=== PATIENT | male | born 1970 | race Caucasian/White ===

== ENCOUNTER → 2017-03-31 | Outpatient (CLI) | payer OTHER ==
[~2017-03-31] MED LIST: ETAN50IN3 SC; FLNIN NAE; FLV1 PO; KLN1X PO; MTH25 PO; NAPR500T3 PO; SRQ25 PO; TRAZ-120 PO; ZLF/100 PO
[2017-03-31 09:39] LABS: BASO % 0.3 %; BASO ABS # 0.02 K/uL (0-0.2); COMPLETE YES; EOS % 3.2 %; HEMATOCRIT 44.3 % (42-52); IG% 0.3 %; LYMPH % 27.8 %; LYMPH ABS # 2.06 K/uL (1.2-3.4); MEAN CELL VOLUME 84.9 fL (80-100); MEAN CORPUSCULAR HEMOGLOBIN 29.7 pg (25-34); MEAN PLATELET VOLUME 9.1 fL (7.4-10.4); MONO % 8.2 %; NEUT % 60.2 %; PLATELET COUNT 161 K/uL (130-400); RED BLOOD COUNT 5.22 M/uL (4.7-6.1); WHITE BLOOD COUNT 7.42 K/uL (4.8-10.8)
[2017-03-31 10:10] LABS: BLOOD UREA NITROGEN 25 mg/dl (7-18); BUN/CREATININE RATIO 24.6 (10-20); CALCIUM 8.3 mg/dl (8.5-10.1); CARBON DIOXIDE 26 mmol/L (21-32); CHLORIDE 104 mmol/L (98-107); GLUCOSE 93 mg/dl (70-99); POTASSIUM 4.1 mmol/L (3.5-5.1); SODIUM 136 mmol/L (136-145)
[2017-03-31 10:13] LABS: CHOLESTEROL 168 mg/dl (0-200); CHOLESTEROL/HDL RATIO 4.7; HDL CHOLESTEROL 36 mg/dl; LDL CHOLESTEROL CALCULATED 108 mg/dl; TRIGLYCERIDES 121 mg/dl (0-150); VERY LOW DENSITY LIPOPROT CALC 24 mg/dl
== END | disposition home or self-care (01) ==
LOC: C.LAB1850 08:10
PROVIDERS: ATTEND Family Medicine
DX: Z87.898 Personal history of other specified conditions (principal)

== ENCOUNTER → 2017-05-22 | Outpatient (CLI) | payer OTHER ==
--- NOTE | 2017-05-22 14:23 | DIAGNOSTIC IMAGING REPORT ---
R KNEE 4 OR MORE CLINICAL HISTORY: RIGHT KNEE PAIN pain COMPARISON: None. DISCUSSION: Moderate degenerative narrowing of all major joint compartments. Very small joint effusion. Small osteophytes from the superior and inferior aspects of the patella. No significant fat fluid level. There is no evidence for soft tissue swelling. IMPRESSION: Moderate degenerative change all major joint compartments. Small joint effusion. The above report was generated using voice recognition software. It may contain grammatical, syntax or spelling errors. Electronically signed by: Ruben Montgomery M.D. 05/22/2017 2:22 PM Dictated Date/Time: 05/22/2017 2:21 PM
== END | disposition home or self-care (01) ==
LOC: C.RDSM 08:00
PROVIDERS: ATTEND Family Medicine
DX: M25.561 Pain in right knee (principal)

== ENCOUNTER → 2017-05-29 | Outpatient (CLI) | payer OTHER ==
--- NOTE | 2017-05-29 08:52 | DIAGNOSTIC IMAGING REPORT ---
MRI OF THE RIGHT KNEE CLINICAL HISTORY: Right knee injury. COMPARISON STUDY: Radiograph of the right knee dated 05/22/2017. TECHNIQUE: MRI of the right knee was performed utilizing proton density, T1, and T2-weighted sequences in the axial, sagittal, coronal planes. IV contrast was not administered for this examination. FINDINGS: Menisci: There is extensive tearing/maceration involving the medial meniscus which is extruded. There is a free edge tear involving the lateral meniscus. Ligaments: The anterior and posterior cruciate ligaments are intact. The medial collateral ligament is intact. There is significant thickening and irregularity of the fibular collateral ligament which is at least partially torn near the femoral insertion. There is subchondral cystic change and marrow edema in the underlying femoral condyle and this is likely chronic. There is also tendinopathy with partial thickness tearing of the popliteus tendon in this region. The iliotibial band is preserved. Extensor mechanism: The extensor mechanism is intact. Hoffa's fat pad is normal in appearance. Articular cartilage and bone: As noted above, there is significant marrow edema and subchondral cyst formation identified within the peripheral aspect of the lateral femoral condyle. This is likely related to chronic injury/degenerative change. There is significant marrow edema also seen within the medial femoral condyle, greatest along the weightbearing surface. Marginal osteophytes are noted and there are small patellar enthesophytes. There is mild thinning of the articular cartilage and patellofemoral compartment. A small focus of full-thickness cartilage loss is seen along the inferior aspect of the medial patellar facet on axial image #17. There is also full-thickness cartilage loss seen in the underlying medial femoral trochlea on axial image #16. There is greater than 50% thinning of the articular cartilage along the weightbearing surface in the medial and lateral compartments. There is nearly full-thickness loss on the weightbearing surface in the medial compartment. Joint effusion: A moderate joint effusion is identified. Soft tissues: The musculature surrounding the knee joint is normal in bulk and signal intensity. A tiny popliteal cyst is noted. IMPRESSION: 1. There is maceration with extensive degenerative tearing and extrusion of the medial meniscus. 2. A free edge tear is seen involving the lateral meniscus. 3. The cruciate ligaments and the medial collateral ligament are intact. 4. There is chronic appearing tearing of the fibular collateral ligament, greatest at the femoral insertion. There is also tearing of the popliteus tendon at this site. Marrow edema and subchondral cystic change is present within the peripheral aspect of the underlying lateral femoral condyle and these findings are likely chronic. 5. Additional foci of arthritic change as above with significant marrow edema within the medial femoral condyle. 6. Joint effusion and tiny popliteal cyst. Electronically signed by: Frankie Son M.D. 05/29/2017 8:51 AM Dictated Date/Time: 05/29/2017 8:41 AM
== END | disposition home or self-care (01) ==
LOC: C.MRI 07:40
PROVIDERS: ATTEND Family Medicine
DX: S83.241A Other tear of medial meniscus, current injury, right knee, initial encounter (principal); S83.281A Other tear of lateral meniscus, current injury, right knee, initial encounter; M23.8X1 Other internal derangements of right knee; M25.461 Effusion, right knee; M71.21 Synovial cyst of popliteal space [Baker], right knee; X50.1XXA Overexertion from prolonged static or awkward postures, initial encounter; Z88.1 Allergy status to other antibiotic agents; Z91.048 Other nonmedicinal substance allergy status

== ENCOUNTER → 2017-06-05 | Outpatient (CLI) | payer OTHER | END | disposition home or self-care (01) | LOC: C.RDSM 19:23 | PROVIDERS: ATTEND Physical Medicine & Rehabilitation Sports Medicine | DX: M25.561 Pain in right knee (principal) ==

== ENCOUNTER → 2017-07-30 | Day surgery (SDC) | payer OTHER ==
[2017-07-21 09:59] VITALS: Ht 167.6 cm; Wt 113.6 kg
[~2017-07-30] VITALS: Ht 167.6 cm; Wt 113.6 kg
[~2017-07-30] MED LIST changes: +ASPI325T45 PO; +ATROPINE SULFATE 0.1 MG/ML 5ML SYR IV PRN; +BUPR-79 PO; +CEFAZOLIN 3000MG IV PUSH 22.5 ML IV SCH; +CLOM25CA3 PO; +CLOM75CA3 PO; +DEXAMETHASONE SOD INJ 4 MG/ML VIAL ONE; -ETAN50IN3 SC; +EpHEDrine SULFATE INJ 50 MG/ML AMP IV PRN; +FENTANYL CITRATE INJ 50 MCG/1 ML 2 ML VIAL ONE; -FLNIN NAE; +FLUT50SP45; +HYDR-5688 PO; +LACTATED RINGER'S 1000ML 1,000 ML IV SCH; +LIDOCAINE HCL 2% 2 ML VIAL (20MG/ML) ONE; +LIDOCAINE/EPINEPHRINE 1% 20 ML VIAL ONE; +MIDAZOLAM HCL 1 MG/ML 2ML VIAL ONE; +MoRPHine SULFATE 2 MG/ML CARP IV PRN; +MoRPHine SULFATE 4 MG/ML 1 ML CARP\\VIAL IV PRN; +NAPR-1231 PO; -NAPR500T3 PO; +ONDANSETRON INJ 2 MG/ML 2 ML VIAL IV PRN; +ONDANSETRON INJ 2 MG/ML 2 ML VIAL ONE; +OXYCODONE/ACETAMINOPHEN 5-325 TAB PO PRN; +PROPOFOL IV EMULSION 10 MG/ML 20 ML VIAL IV ONE; +QUET1TAB34 PO; +RMCI INJ; +SODIUM CHLORIDE 0.9% 1000ML 1,000 ML IV SCH; -SRQ25 PO; -TRAZ-120 PO; -ZLF/100 PO
--- NOTE | 2017-07-30 09:04 | History & Physical Bridge Note ---
H&P Re-Evaluation Bridge Note: I have examined the patient, reviewed the History & Physical and in the interval since the performance of the History & Physical I have noted the following changes of clinical significance: No changes noted
--- NOTE | 2017-07-30 11:17 | [facility] Post Operative Brief Note ---
Immediate Operative Summary Operative Date Jul 30, 2017. 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
--- NOTE | 2017-07-30 11:32 | Discharge Instructions-SurgCtr ---
Discharge Instructions Date of Service Jul 30, 2017. Visit Reason for Visit: Right Knee Chondrosis With Medial Lateral Meniscus Discharge Discharge Diagnosis / Problem: Right knee chondrosis, synovitis, medial and lateral meniscal tears Discharge Goals Goal(s): Decrease discomfort, Improve function, Increase independence Medications Stopped Medications Name(s): stopped blood thinners Restart Stopped Medication(s): Please resume her methotrexate and Remicade as indicated by her carbon cutter. Hold for at least 2 weeks after surgery. May resume as of August 14, 2017. Activity Recommendations Activity Limitations: per Instructions/Follow-up section Weightbearing Status: Right weightbearing (as tolerated) Anesthesia . Post Anesthesia Instructions: If you have had General Anesthesia or IV Sedation: * Do not drive today. * Resume driving when surgeon permits. * Do not make important decisions or sign legal documents today. * Call surgeon for: 1. Temperature elevations greater than 101 degrees F. 2. Uncontrollable pain. 3. Excessive bleeding. 4. Persistent nausea and vomiting. 5. Medication intolerance (nausea, vomiting or rash). * For nausea and vomiting use only clear liquids such as: tea, soda, bouillon until nausea subsides, then gradually increase diet as tolerated. * If you have any concerns or questions, call your surgeon's office. If physician is unavailable and it is an emergency, call 911 or go to the nearest emergency room. . Instructions / Follow-Up Instructions / Follow-Up The following are instructions to follow after your Arthroscopic Knee Surgery. ACTIVITY RECOMMENDATIONS: * Minimize activity until your first visit after surgery. * No excessive walking, jogging, sports or laboring. * Return to activity is individualized. Most patients are able to return to every day activities within one month. * Return to sports or intensive labor usually occurs at 2-3 months. * Driving is not permitted until at least your first postoperative visit at a minimum. Please ask your doctor when it is safe to resume driving. If you have an automatic vehicle and your left leg has been operated on, then you may begin driving as soon as you are comfortable and can drive safely. SCHOOL/WORK RECOMMENDATIONS: * You may return to sedentary work or school when you are feeling more comfortable. This is usually 3-7 days after surgery. * Expect increased discomfort with increased activity. Continue to elevate and ice the leg as much as possible. MEDICATIONS: * You will have a prescription for pain medication and an anti-inflammatory medication after surgery. * Use the pain medication for severe pain and the anti-inflammatory for less severe pain. Once the pain medication has run out, try to use the anti-inflammatory medication. If this is not effective, contact the office for assistance. * The pain medication may cause nausea, constipation and drowsiness. You should see how they affect you before driving or similar activity. * The anti-inflammatory medication may cause stomach upset and bleeding. If this occurs let your doctor know immediately . * Take a stool softener like Colace or a laxative like Senokot to prevent constipation. DIET: * Resume previous diet. SPECIAL CARE: ICE: You have the option of an ice cooler, gel packs or ice bags. * If you have an ice cooler, refer to the instructions for that device. The ice cooler may be used continuously. * If you do not have an ice cooler, you will need to use ice bags or gel packs. Do not apply ice directly to the skin. Use a thin dressing or stephanie shirt between the skin and ice bag. Apply ice for 20-30 minutes and repeat every 2-4 hours. This is especially important for the first 7-10 days after surgery. Once the pain improves, use ice as needed. ELEVATION: * Keep your leg elevated at or above the level of your heart as much as possible. * Expect some increased discomfort and swelling if you are standing for any length of time. * When lying down, avoid placing anything under your knee. Rather, prop your leg up by placing several pillows under your heel or calf. DRESSING: * Your dressing will be changed at your first therapy appointment approximately 4-5 days after surgery. Band-aids, tape strips or gauze may be applied. You may then change your dressing daily. * Reapply dressing followed by the Avila wrap or Tubi-stone driller helper stockinet and EBIce cooling pad (if chosen). * Always wash your hands prior to touching the incision area. * Once the stitches are removed, you may leave the wound open to air or cover with an Avila wrap or Tubi-stone driller helper stockinet. * If you have been given a white elastic stocking (JEROME hose), wear as much as possible for the first 1-3 weeks depending on swelling. * Expect some bloody drainage for the first few days after surgery. * Leave the tape strips, if present, in place for 5-7 days. * Band-aids and gauze may be changed daily. CRUTCHES: * You will need to use crutches after surgery. * You may gradually progress to full weight bearing as tolerated and wean off the crutches unless otherwise advised. * Your therapist can provide assistance weaning off crutches. * Patients who have a microfracture done may need to be toe-touch weight- bearing for 4-6 weeks. BATHING: * You may shower or sponge-bathe immediately after surgery. * The dressing will need to be covered with a plastic bag or plastic wrap until the dressing is changed on the fourth or fifth day after surgery. * Once the dressing has been changed on the fourth or fifth day after surgery, you may shower and get the incision wet. * Wash with regular soap and water. * Do not bathe (submerge the incision), soak, swim or use a hot tub until the incision is completely healed over with normal skin and the doctor has given the OK to proceed. * There is no need to apply any ointments, powders or salves to your incision. * Do not apply alcohol or hydrogen peroxide directly to the incision. * Diluted peroxide (50:50 mixture with sterile saline) may be used to clean dried blood from around the incision area. BRACE: * Bracing is generally not needed after routine Arthroscopic Knee surgery. THERAPY: * You will begin therapy four or five days after surgery. * Organized therapy with the therapist is important for the first 4-6 weeks after surgery. During that time you will attend therapy 1-3 times per week. * You will also need to do daily exercises for range of motion and strength as instructed. PROBLEMS/QUESTIONS: * If you have any problems such as severe pain, numbness, tingling or high fevers or if you have any questions, please contact the office at [phone]. * It is not uncommon to have some numbness and tingling after the surgery especially if you have had a nerve block done. This should gradually improve over the first 1- 2 days. If this persists longer or worsens please contact the office. FOLLOW UP VISIT: * If not already scheduled, please call the office at to schedule a follow-up appointment for 10 days, 6 weeks and 3 months after surgery. *You have a follow-up appointment with Dr. Ceron on August 10, 2017 at 11:45 AM. *You have a physical therapy appointment on August 03, 2017 at 2:00 PM. Diet Recommendations Home Diet: no limitations, resume previous diet Procedures Procedures Performed: Right Knee Arthroscopy, Chondroplasty, Partial Lateral and Medial Meniscectomy and Synovectomy Pending Studies Studies pending at discharge: no Medical Emergencies . Who to Call and When: Medical Emergencies: If at any time you feel your situation is an emergency, please call 911 immediately. . Non-Emergent Contact Non-Emergency issues call your: Surgeon Call Non-Emergent contact if: temperature is above 100.5, your pain is not controlled, wound has increased drainage, wound has increased redness, wound has increased pain, you have any medication questions . . "Provider Documentation" section prepared by Lynda Lomeli. . [place] Drug Monitoring Program Search Results: patient reviewed within database, no issues identified
--- NOTE | 2017-07-30 11:35 | [facility] Operative Report ---
Operative Report Operative Date Jul 30, 2017. 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 He is progressively worsened over the last few months. X-rays were taken and was found to have some mild degenerative changes of his right knee. MRI was taken and found to have a medial lateral meniscal tear. He is failed conservative treatment. Due to the failure of conservative treatment, surgical intervention was discussed. He wished to proceed with surgery. Risks and complications of surgery were explained to the patient and informed consent was obtained. Description of Procedure Patient was taken to the operating room and placed under general anesthesia. He was given 2 g of IV Ancef for surgical prophylaxis. Timeout was performed. He was prepped and draped in routine sterile fashion. I was present during the entire case, please see Dr. Ceron's operative report for further detail. Patient was awakened and transferred to the recovery room in stable condition. I attest to the content of the Intraoperative Record and any orders documented therein. Any exceptions are noted below.
--- NOTE | 2017-07-30 11:41 | [facility] Operative Report ---
Operative Report Operative Date Jul 30, 2017. Pre-Operative Diagnosis Right knee chondrosis with medial and lateral meniscal tears Post-Operative Diagnosis Same as pre-op Procedure(s) Performed Right Knee Arthroscopy, Chondroplasty, Partial Lateral and Medial Meniscectomy and Synovectomy Surgeon Surgical Services Director Surgeon(s) Zeinab MARTINEZ Estimated Blood Loss 20ML Findings Grade 2 and possibly grade 3 chondrosis trochlea 22 cm. Normal appearance of the patella. Diffuse synovitis. Fraying and tearing of the inner rim of the lateral meniscus. Grade 3 chondrosis of the lateral femoral condyle weightbearing area 1.51 cm. Complex irreparable medial meniscus tear with grade 1 chondrosis of the tibial plateau and diffuse grade 2-3 chondrosis of the medial femoral condyle. Specimens None Anesthesia Laryngeal mask Complication(s) None Disposition Recovery Room / PACU Indications Patient's a 46-year-old male. He is status post a work-related injury to his right knee. He has chondrosis of the knee and injury to the medial meniscus. He also has rheumatoid arthritis. His medications have been held in coordination with his greaser and oiler preoperatively and will will be begun 2 weeks postoperatively. Description of Procedure Informed consent was obtained. The patient was identified as Cristiano Jin. The operative site was identified as the right knee which I marked with my initials. A preop dose of IV antibiotics was given. The patient was positioned supine on the operating room table. A preoperative surgical timeout was performed. The examination under anesthesia showed range of motion 0 to about 110 with intact cruciate and collateral ligaments with no significant effusion or bogginess.. A lateral post was used for stressing the knee. No tourniquet was applied. DVT prophylaxis intraoperatively with foot pumps. A laryngeal mask anesthetic was administered. Prior to start of the operation 1% lidocaine with epinephrine was injected into the knee joint, fat pad and portal sites. Inferolateral viewing portal superior lateral outflow portal and inferomedial working portal were established. Diagnostic arthroscopy was performed. Diffuse synovitis likely secondary to rheumatoid arthritis was identified throughout the knee suprapatellar pouch anterior compartment posterior medial lateral gutters. It was debrided throughout the knee worked as were encountered except for the posterior medial lateral compartments. The cruciate ligaments were normal. The patella was normal. There is an area approximately 1.5-2 cm of grade 2 perhaps grade 3 chondrosis of the trochlea but not grade 4. This was in the lower central portion of the trochlea. There were no loose bodies. The lateral compartment showed fraying and tearing of the inner rim of the lateral meniscus which was debrided with the shaver. There was a 5-7 mm rim width to the popliteal hiatus. There was synovitis encroaching into the lateral compartment under and on top of the meniscus which was debrided. The meniscal roots were intact. The lateral tibial plateau had some grade 1 softening. The lateral femoral condyle was normal except for an area towards the posterior weightbearing area which had grade 2 and 3 chondrosis over an area of 1.51 cm. Chondroplasty performed. The posterior lateral view showed synovitis but no peripheral meniscus tear. Chondroplasty of the trochlea was performed. Synovectomy of the medial lateral gutters was performed. Hemostasis with cold cut. The medial compartment showed a complex unstable tear of the medial meniscus involving the body. The roots were intact. Partial medial meniscectomy was performed with basket forceps and a motorized shaver. There was diffuse grade 2 and perhaps some areas of grade 3 chondrosis but no grade 4 changes noted on the weightbearing area of the femoral condyle essentially the entire weightbearing area about 2-2-1/2 cm wide and 3 cm in length. Posterior medial compartment showed synovitis but no peripheral tear. Cold cut was utilized to prevent hemarthrosis by electrocauterizing any bleeding surfaces at the conclusion of the surgery. The orthoscopic instruments removed from the knee. The portals were closed with 4-0 nylon. The leg was cleaned with wet and dry sponges. A soft sterile dressing was applied. Patient was awakened from anesthesia without difficulty and taken to recovery in stable condition. There were no specimens or complications. Counts were correct at the case. Blood loss was minimal. At the conclusion of the operation I spoke to the patient's family and informed them of my findings. Detailed postoperative instructions were given. The patient will be rehabilitated according to the meniscectomy and chondroplasty protocol. The patient will begin aspirin for DVT prophylaxis the night of surgery. The medial compartment was tight and access was improved by perforating the MCL percutaneously with an 18-gauge spinal needle. I attest to the content of the Intraoperative Record and any orders documented therein. Any exceptions are noted below.
[2017-07-30] MEDS: FENTANYL CITRATE INJ 50 MCG/1 ML 2 ML VIAL IV PRN ×4 (12:01→12:19)
--- NOTE | 2017-07-30 12:16 | Anesthesia Progress Nt - [facility] ---
Anesthesia Post Op Note Date & Time Jul 30, 2017 at 12:16 Vital Signs Pain Intensity: 6.0 Vital Signs Past 12 Hours Date Time Temp Pulse Resp B/P (MAP) Pulse Ox O2 Delivery O2 Flow Rate FiO2 07/30/17 12:01 121/92 07/30/17 11:59 95 15 95 07/30/17 11:59 96 15 07/30/17 11:56 144/85 07/30/17 11:54 90 17 07/30/17 11:54 90 17 93 07/30/17 11:51 122/85 07/30/17 11:49 91 14 93 07/30/17 11:49 91 14 07/30/17 11:46 110/83 07/30/17 11:44 91 16 07/30/17 11:44 91 16 91 07/30/17 11:43 95 18 07/30/17 11:43 94 18 90 07/30/17 11:41 121/73 07/30/17 11:38 91 18 07/30/17 11:38 91 18 88 07/30/17 11:36 111/70 07/30/17 11:33 93 17 07/30/17 11:33 95 17 90 07/30/17 11:31 122/87 07/30/17 11:30 36.6 98 20 123/81 93 Mask 10 07/30/17 11:29 123/81 07/30/17 11:28 91 07/30/17 11:28 91 87 07/30/17 09:03 36.9 98 16 137/90 (106) 100 Room Air Notes Mental Status: alert / awake / arousable, participated in evaluation Pt Amnestic to Procedure: Yes Nausea / Vomiting: adequately controlled Pain: adequately controlled Airway Patency, RR, SpO2: stable & adequate BP & HR: stable & adequate Hydration State: stable & adequate Anesthetic Complications: no major complications apparent
[2017-07-30 12:29] VITALS: TEMP 36.6
[2017-07-30 13:05] VITALS: BP 119/81; PULSE 96; O2SAT 92
== END | disposition home or self-care (01) ==
LOC: X.SURG 08:43
PROVIDERS: ATTEND Physical Medicine & Rehabilitation Sports Medicine
DX: S83.231A Complex tear of medial meniscus, current injury, right knee, initial encounter (principal); S83.281A Other tear of lateral meniscus, current injury, right knee, initial encounter; X50.9XXA Other and unspecified overexertion or strenuous movements or postures, initial encounter; M94.8X6 Other specified disorders of cartilage, lower leg; G47.33 Obstructive sleep apnea (adult) (pediatric); I10 Essential (primary) hypertension; M08.20 Juvenile rheumatoid arthritis with systemic onset, unspecified site; F42.8 Other obsessive-compulsive disorder; M06.9 Rheumatoid arthritis, unspecified; E66.9 Obesity, unspecified; Z68.41 Body mass index [BMI] 40.0-44.9, adult; F32.9 Major depressive disorder, single episode, unspecified; F41.9 Anxiety disorder, unspecified; Z79.899 Other long term (current) drug therapy; Z88.1 Allergy status to other antibiotic agents; Z98.890 Other specified postprocedural states; Z85.820 Personal history of malignant melanoma of skin; Z83.3 Family history of diabetes mellitus; Z82.49 Family history of ischemic heart disease and other diseases of the circulatory system